=== PATIENT | male | born 1995 | race Caucasian/White ===

== ENCOUNTER 2020-12-29 14:55 | Inpatient (IN) | payer MEDICAID ==
[~2020-12-29] VITALS: Ht 190.5 cm; Wt 82.7 kg
[2020-12-29 18:53] VITALS: BP 114/73
[2020-12-29] MEDS ORDERED: HALOPERIDOL 5 MG TABLET PO PRN (19:15)
[2020-12-29] MEDS ORDERED: LORazepam 2 MG TABLET PO PRN (19:15)
[2020-12-29] MEDS ORDERED: ZOLPIDEM TARTRATE 10 MG TABLET PO PRN (19:15)
[2020-12-29] MEDS ORDERED: VENL-193 PO (19:32)
[2020-12-29] MEDS ORDERED: HYDR50CA9 PO (19:32)
[2020-12-29] MEDS ORDERED: GABA-1216 PO (19:32)
[2020-12-29] MEDS ORDERED: IBUP-1506 PO (19:32)
[2020-12-29 20:11] VITALS: BP 146/83
[2020-12-29 20:37] VITALS: BP 119/73
[2020-12-29] MEDS ORDERED: NICOTINE POLACRILEX 2 MG LOZENGE PO PRN (21:45)
[2020-12-30 05:12] VITALS: BP 144/61
[2020-12-30 07:42] LABS: BASOPHILS % (AUTO) 0.7 % (0.0-2.0); EOSINOPHILS % (AUTO) 3.2 % (1.0-6.0); HEMATOCRIT 44.3 % (41-53); HEMOGLOBIN 14.8 g/dL (13.5-17.5); LYMPHOCYTES # (AUTO) 1.4 K/uL (1.0-4.8); LYMPHOCYTES % (AUTO) 35.2 % (22.0-44.0); MEAN CORPUSCULAR HEMOGLOBIN 29.2 pg (26.0-34.0); MEAN CORPUSCULAR HGB CONC 33.5 G/dL (31.0-37.0); MEAN CORPUSCULAR VOLUME 87 fL (80-100); MONOCYTES # (AUTO) 0.3 K/uL (0.1-1.0); MONOCYTES % (AUTO) 6.9 % (2.0-9.0); NEUTROPHILS # (AUTO) 2.1 K/uL (1.8-7.7); PLATELET COUNT (AUTO) 279 K/uL (150-450); RED BLOOD CELL COUNT(AUTO) 5.09 MIL/uL (4.50-5.90); RED CELL DISTRIBUTION WIDTH 12.8 % (11.5-14.5)
[2020-12-30 08:14] LABS: ALANINE AMINOTRANSFERASE 24 U/L (12-78); ALBUMIN 4.7 g/dL (3.4-5.0); ALKALINE PHOSPHATASE 59 U/L (46-116); ANION GAP 7 mmol/L (8-16); ASPARTATE AMINOTRANSFERASE 14 U/L (15-37); BILIRUBIN,TOTAL 0.5 mg/dL (0.1-1.0); CALCIUM, TOTAL 9.4 mg/dL (8.8-10.5); CARBON DIOXIDE 31 mmol/L (22-29); CHLORIDE 101 mmol/L (98-107); CHOL/HDL RATIO 3.2 (4.2-7.3); CHOLESTEROL 146 mg/dL (131-200); CREATININE 0.93 mg/dL (0.60-1.30); GLOMERULAR FILTR. RATE CALC > 60 mL/min (>60); GLUCOSE,RANDOM 109 mg/dL (70-110); HDL CHOLESTEROL 45 mg/dL (40-60); LDL CHOL (CALC.) 88 mg/dL (0-130); POTASSIUM 3.9 mmol/L (3.5-5.1); SODIUM SERUM 139 mmol/L (136-145); THYROID STIMULATING HORMONE 0.35 uIU/mL (0.36-3.74); TOTAL PROTEIN, SERUM 7.8 g/dL (6.4-8.2); TRIGLYCERIDES 66 mg/dL (15-150); UREA NITROGEN, BLOOD 13 mg/dL (7-18)
[2020-12-30 08:28] VITALS: BP 118/64
[2020-12-30] MEDS ORDERED: CloNIDine HCL 0.1 MG TABLET PO PRN (08:45)
[2020-12-30] MEDS ORDERED: GuaiFENesin/D-METHORPHAN [SUGAR-FREE] 200-20MG/10 ML SYRUP UDCUP PO PRN (08:45)
[2020-12-30] MEDS ORDERED: LOPERAMIDE HCL 2 MG CAPSULE PO PRN (08:45)
[2020-12-30] MEDS ORDERED: ALBUTEROL SULFATE HFA 90 MCG/PUFF 8 GM INHALER IH PRN (08:45)
[2020-12-30] MEDS ORDERED: PETROLATUM,WHITE 28 GM JELLY TP PRN (08:45)
[2020-12-30] MEDS ORDERED: NICOTINE 14 MG/24 HOUR PATCH TD PRN (08:45)
[2020-12-30] MEDS ORDERED: MAGNESIUM HYDROXIDE SUSPENSION 30 ML UDCUP PO PRN (08:45)
[2020-12-30] MEDS ORDERED: DOCUSATE SODIUM 100 MG CAPSULE PO PRN (08:45)
[2020-12-30] MEDS ORDERED: ACETAMINOPHEN 325 MG TABLET PO PRN (08:45)
[2020-12-30] MEDS ORDERED: ONDANSETRON HCL 4 MG TABLET PO PRN (08:45)
[2020-12-30] MEDS ORDERED: IBUPROFEN 400 MG TABLET PO PRN (08:45)
[2020-12-30] MEDS ORDERED: MAG HYDROX/AL HYDROX/SIMETH ES 30 ML SUSPENSION UDCUP PO PRN (08:45)
[2020-12-30] MEDS ORDERED: QUEtiapine FUMARATE 100 MG TABLET PO PRN (10:45)
[2020-12-30] MEDS: SERTRALINE HCL 50 MG TABLET PO SCH (12:29)
[2020-12-30] MEDS: HydrOXYzine PAMOATE 25 MG CAPSULE PO PRN ×2 (13:17→17:32)
[2020-12-30 16:15] VITALS: BP 131/90
[2020-12-31 01:15] VITALS: BP 128/88
[2020-12-31] MEDS: SERTRALINE HCL 50 MG TABLET PO SCH (08:47)
[2020-12-31 08:48] VITALS: BP 111/69
[2020-12-31] MEDS: HydrOXYzine PAMOATE 25 MG CAPSULE PO PRN (08:48)
[2020-12-31 16:07] VITALS: BP 126/81
[2021-01-01 01:14] VITALS: BP 124/81
[2021-01-01] MEDS: HydrOXYzine PAMOATE 25 MG CAPSULE PO PRN ×2 (07:47→16:43)
[2021-01-01] MEDS: SERTRALINE HCL 50 MG TABLET PO SCH (08:01)
[2021-01-01 08:56] VITALS: BP 111/59
[2021-01-01 16:09] VITALS: BP 116/60
[2021-01-02 04:02] VITALS: BP 123/67
[2021-01-02] MEDS: HydrOXYzine PAMOATE 25 MG CAPSULE PO PRN (06:18)
[2021-01-02] MEDS: SERTRALINE HCL 50 MG TABLET PO SCH (08:11)
[2021-01-02 08:45] VITALS: BP 115/66
[2021-01-02 16:03] VITALS: BP 102/63
[2021-01-03 05:23] VITALS: BP 106/61
[2021-01-03 08:07] VITALS: BP 115/67
[2021-01-03] MEDS: SERTRALINE HCL 50 MG TABLET PO SCH ×2 (08:44→09:05)
[2021-01-03 17:49] VITALS: BP 104/76
[2021-01-04 03:36] VITALS: BP 121/65
[2021-01-04 08:15] VITALS: BP 106/60
[2021-01-04] MEDS: SERTRALINE HCL 50 MG TABLET PO SCH (08:38)
[2021-01-04 16:24] VITALS: BP 117/76
[2021-01-04] MEDS: HydrOXYzine PAMOATE 25 MG CAPSULE PO PRN (17:31)
[2021-01-05 06:29] VITALS: BP 112/74
[2021-01-05 08:06] VITALS: BP 115/69
[2021-01-05] MEDS: SERTRALINE HCL 50 MG TABLET PO SCH (08:28)
[2021-01-05 16:11] VITALS: BP 117/70
[2021-01-05] MEDS: HydrOXYzine PAMOATE 50 MG CAPSULE PO PRN (18:20)
[2021-01-06 05:51] VITALS: BP 114/69
[2021-01-06 08:30] VITALS: BP 108/67
[2021-01-06] MEDS: SERTRALINE HCL 50 MG TABLET PO SCH (08:50)
[2021-01-06 16:24] VITALS: BP 110/60
[2021-01-06] MEDS: HydrOXYzine PAMOATE 50 MG CAPSULE PO PRN (18:40)
[2021-01-07 04:13] VITALS: BP 108/70
[2021-01-07 08:19] VITALS: BP 106/60
[2021-01-07] MEDS: SERTRALINE HCL 50 MG TABLET PO SCH (09:12)
[2021-01-07 16:45] VITALS: BP 105/70
[2021-01-08 05:23] VITALS: BP 112/71
[2021-01-08 07:25] LABS: COVID AG,FIA SOURCE NASOPHARYNGEAL
[2021-01-08 08:15] VITALS: BP 107/68
[2021-01-08] MEDS: SERTRALINE HCL 50 MG TABLET PO SCH (08:41)
[2021-01-08] MEDS ORDERED: SERT-158 PO (13:20)
== END 2021-01-08 14:00 | disposition home or self-care (01) | DRG 751 ==
LOC: B3A 18:32
DX: F33.2 Major depressive disorder, recurrent severe without psychotic features (principal); R44.0 Auditory hallucinations; R45.851 Suicidal ideations; D72.819 Decreased white blood cell count, unspecified; Z20.822 Contact with and (suspected) exposure to COVID-19; F12.10 Cannabis abuse, uncomplicated; F41.9 Anxiety disorder, unspecified; G47.00 Insomnia, unspecified; R00.0 Tachycardia, unspecified; Z59.0 Homelessness; Z79.899 Other long term (current) drug therapy; Z88.8 Allergy status to other drugs, medicaments and biological substances; Z91.5 Personal history of self-harm
CPT/HCPCS: 80053; 80061; 84439; 84443; 85025; 87426; A9575